=== PATIENT | male | born 1975 | race Caucasian/White ===

== ENCOUNTER → 2022-02-09 | Outpatient (CLI) | payer OTHER, SELFPAY ==
--- NOTE | 2022-02-09 14:25 | RAD_ITS ---
STUDY: X-RAY - LEFT FOOT CLINICAL: Male, 46 years old. RUPTURE OF PLANTAR FASCIA TECHNIQUE: 3 view(s) of the foot. COMPARISON: None. FINDINGS: BONES: No fracture demonstrated. Small calcaneal spurs at the plantar aspect and posterior Achilles insertion site. JOINTS: No dislocation. SOFT TISSUES: Unremarkable. Small calcific densities posterior to the ankle may be ossicles or calcific tendinitis. RAD/Foot min 3 Views IMPRESSION: No evidence of fracture. MRI may be helpful for further evaluation if clinically indicated. Electronically Signed: Luly Spangler MD at 7:19 EDT ,
== END | disposition home or self-care (01) ==
LOC: MTRAD 14:22
PROVIDERS: PCP Family Medicine; Referring Provider Family Medicine; Visit Provider Family Medicine
DX: S93.692D Other sprain of left foot, subsequent encounter (principal); X58.XXXD Exposure to other specified factors, subsequent encounter
CPT/HCPCS: 73630

== ENCOUNTER → 2023-11-07 | Outpatient (CLI) | payer OTHER, SELFPAY ==
--- NOTE | 2023-11-07 16:23 | STRESSREP ---
Stress Test Report Exercise stress test. 48-year-old man with a history of syncope Stress protocol: Resting EKG demonstrates normal sinus rhythm with a rate of 76 bpm resting blood pressure is 154/90 mmHg. The patient exercised according to the regular [facility] protocol for a total duration of 7 minutes and 38 seconds attaining a maximum heart rate of 151 bpm which was 87% of maximum predicted heart rate; the maximum workload was 10.4 metabolic equivalents. At rest there were no ST or T wave changes noted to suggest ischemia and at peak exercise upsloping ST changes only were noted which did not meet the criteria for ischemia. No clinical angina was noted the test was terminated due to the target heart rate being achieved/fatigue. Patient was also noted to be markedly short of breath. The peak blood pressure was 230/98 mmHg. Rate-pressure product was 30,000. Hypertensive response to exercise was noted Conclusion: Exercise stress test with no EKG criteria at a high workload Hypertensive response to exercise noted
== END | disposition home or self-care (01) ==
PROVIDERS: PCP Family Medicine; Referring Provider Family Medicine; Visit Provider Family Medicine
DX: R55 Syncope and collapse (principal)
CPT/HCPCS: 93017